=== PATIENT | male | born 2000 | race Caucasian/White ===

== ENCOUNTER 2024-04-03 18:27 | Emergency (ER) | payer SELFPAY ==
[2024-04-03] MEDS: Ibuprofen 600 MG Tab PO ONE (19:44)
[2024-04-03] MEDS: Acetaminophen 500 MG Tab PO ONE (19:44)
== END 2024-04-03 20:29 | disposition home or self-care (01) ==
LOC: MW.ED 18:27
DX: S62.664A Nondisplaced fracture of distal phalanx of right ring finger, initial encounter for closed fracture (principal); S61.314A Laceration without foreign body of right ring finger with damage to nail, initial encounter; W20.8XXA Other cause of strike by thrown, projected or falling object, initial encounter
CPT/HCPCS: 11740; 73130; 99283; A9270